=== PATIENT | male | born 1965 | race Caucasian/White ===

== ENCOUNTER 2018-01-09 10:38 | Emergency (ER) | payer OTHER ==
[~2018-01-09] VITALS: Ht 177.8 cm; Wt 100.7 kg
[2018-01-09] MEDS ORDERED: ALLOPURINOL100 MG (11:14)
[2018-01-09] MEDS ORDERED: AMLODIPINE BESY10 MG (11:14)
== END 2018-01-09 12:35 | disposition home or self-care (01) ==
LOC: ER 10:38
DX: S61.210A Laceration without foreign body of right index finger without damage to nail, initial encounter (principal); W45.8XXA Other foreign body or object entering through skin, initial encounter; Y93.89 Activity, other specified; Y92.89 Other specified places as the place of occurrence of the external cause; Y99.8 Other external cause status